=== PATIENT | male | born 1995 | race Two or more races ===

== ENCOUNTER 2018-08-05 16:53 | Emergency (ER) | payer MEDICAID ==
--- NOTE | 2018-08-05 16:55 | EDPHY ---
H & P Time Seen by Provider: 08/05/18 16:55 HPI/ROS: HPI CHIEF COMPLAINT: Left lateral ankle discomfort. HISTORY OF PRESENT ILLNESS: 23-year-old male, otherwise healthy denies significant medical history presents emergency room left lateral ankle discomfort. The patient states that he rolled his left ankle last Sunday. (10 days a go) He states he was initially very swollen the swelling has improved. However states that it continues to bother him. He has been missing work for week. He states that he did this on Sunday review stepping down a step he states that he did not pay attention and rolled his left ankle inward. Denies any other areas of injury. Is able to bear weight. Past Medical History: No significant medical history Past Surgical History: No significant surgical history Social History: Denies drugs alcohol tobacco. Works as a industrial maintenance electrician. Family History: Denies ROS REVIEW OF SYSTEMS: 10 Systems were reviewed and negative with the exception of the elements mentioned in the history of present illness. Exam Constitutional Appears well non toxic, triage nursing summary reviewed, vital signs reviewed, awake/alert. Eyes normal conjunctivae and sclera, EOMI, PERRLA. HENT normal inspection, atraumatic, moist mucus membranes, no epistaxis, neck supple/ no meningismus, no raccoon eyes. Respiratory clear to auscultation bilaterally, normal breath sounds, no respiratory distress, no wheezing. Cardiovascular rate normal, regular rhythm, no murmur, no edema, distal pulses normal. Gastrointestinal soft, non-tender, no rebound, no guarding, normal bowel sounds, no distension, no pulsatile mass. Genitourinary no CVA tenderness. Musculoskeletal LLE: Mild ttp lateral ankle. Swelling present. Faint Ecchymosis , good DP, good cap refill. no midline vertebral tenderness, full range of motion, no calf swelling, no tenderness of extremities, no meningismus, good pulses, neurovascularly intact. Skin pink, warm, & dry, no rash, skin atraumatic. Neurologic awake, alert and oriented x 3, AAOx3, moves all 4 extremities equally, motor intact, sensory intact, CN II-XII intact, normal cerebellar, normal vision, normal speech. Psychiatric normal mood/affect. Heme/Lymph/Immune no lymphadenopathy. Differential Diagnosis: Includes but is not limited to in a particular order ankle sprain, ankle contusion, fracture Medical Decision Making: Plan for this patient x-ray left ankle. Re-evaluation: X-ray of the left ankle reviewed. Soft tissue swelling. No bony abnormality. No fracture. Plan for this patient walking boot, ice, anti-inflammatory pain medicine orthopedic referral. Return precautions discussed with the patient. He is neurovascular intact. No evidence of compartment syndrome good distal pulse. Source: Patient Constitutional: Initial Vital Signs Temperature (C) 37.0 C 08/05/18 17:00 Heart Rate 91 08/05/18 17:00 Respiratory Rate 16 08/05/18 17:00 Blood Pressure 142/103 H 08/05/18 17:00 O2 Sat (%) 97 08/05/18 17:00 O2 Delivery Mode Room Air Allergies/Adverse Reactions: No Known Allergies Allergy (Verified 08/05/18 17:00) Home Medications: Medication Instructions Recorded NK [No Known Home Meds] 08/05/18 Medical Decision Making - Diagnostics Imaging Results: Imaging Impressions Ankle X-Ray 08/05/18 17:00 Impression: Lateral ankle soft tissue swelling, with no acute or subacute osseous abnormality identified. Departure - Departure Disposition: Home, Routine, Self-Care Clinical Impression: Ankle sprain Qualifiers: Encounter type: initial encounter Involved ligament of ankle: unspecified ligament Laterality: left Qualified Code(s): S93.402A - Sprain of unspecified ligament of left ankle, initial encounter Condition: Good Instructions: Ankle Sprain (ED), Ankle Stirrup Splint (ED) Additional Instructions: 1. Recommend ice, elevation. 2. Walking boot for comfort. 3. Anti-inflammatory pain medicine like Tylenol Motrin 4. Follow up with Orthopedics if not getting better. Referrals: NONE *PRIMARY CARE P,. [Primary Care Provider] - As per Instructions Stone Woodson MD [Medical Doctor] - As per Instructions
[2018-08-05 18:15] VITALS: BP 119/80
== END 2018-08-05 18:15 | disposition home or self-care (01) ==
LOC: CED 16:53
DX: S93.402A Sprain of unspecified ligament of left ankle, initial encounter (principal); X50.9XXA Other and unspecified overexertion or strenuous movements or postures, initial encounter
CPT/HCPCS: 73610-PO; L4386